=== PATIENT | male | born 1995 | race Caucasian/White ===

== ENCOUNTER 2017-02-09 12:23 | Emergency (ER) | payer OTHER ==
[~2017-02-09] VITALS: Ht 167.6 cm; Wt 65.8 kg
[2017-02-09 12:24] VITALS: BP 134/81
== END 2017-02-09 13:43 | disposition home or self-care (01) ==
LOC: M ED 13:32
DX: S01.01XA Laceration without foreign body of scalp, initial encounter (principal); W22.09XA Striking against other stationary object, initial encounter; Y92.89 Other specified places as the place of occurrence of the external cause; Y93.89 Activity, other specified; Y99.1 Military activity